=== PATIENT | male | born 2000 | race Caucasian/White ===

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

== ENCOUNTER 2021-04-17 00:21 | Emergency (ER) | payer BC, OTHER ==
[~2021-04-17] VITALS: Ht 182.9 cm; Wt 63.5 kg
[~2021-04-17 00:21] MED LIST changes: +IBU600 MG PO; +LIDO700A20 TOP
== END 2021-04-17 01:51 | disposition home or self-care (01) ==
LOC: ER 00:21
DX: F41.9 Anxiety disorder, unspecified (principal)
CPT/HCPCS: 90471; 90714; 99282-25; A9270

== ENCOUNTER 2021-11-25 14:21 | Emergency (ER) | payer BC, OTHER ==
[~2021-11-25] VITALS: Ht 182.9 cm; Wt 59.0 kg
[2021-11-25 15:43] LABS: BASOPHILS ABSOLUTE AUTO 0.04 K/mm3 (0.00-0.23); BASOPHILS PERCENT AUTO 0 % (0-2); EOSINOPHILS ABSOLUTE AUTO 0.11 K/mm3 (0.00-0.68); EOSINOPHILS PERCENT AUTO 1 % (0-6); Hematocrit 45.2 % (37.0-53.0); Hemoglobin 15.6 g/dL (13.5-17.5); IMMATURE GRAN ABSOLUTE AUTO 0.05 K/mm3 (0.00-0.10); IMMATURE GRAN PERCENT AUTO 0 % (0-1); LYMPHOCYTES ABSOLUTE AUTO 0.48 K/mm3 (0.84-5.20); LYMPHOCYTES PERCENT AUTO 4 % (21-46); MONOCYTES ABSOLUTE AUTO 0.69 K/mm3 (0.16-1.47); MONOCYTES PERCENT AUTO 6 % (4-13); Mean Corpuscular HGB 30.1 pg (26.0-34.0); Mean Corpuscular HGB Conc 34.5 g/dL (31.5-36.5); Mean Corpuscular Volume 87 fL (80-100); Mean Platelet Volume 11.5 fL (9.1-12.4); NEUTROPHILS PERCENT AUTO 89 % (41-73); Platelet Count 298 K/mm3 (150-400); RDW Coefficient Variation 12.9 % (11.7-14.2); RDW Standard Deviation 41.5 fL (35.1-46.3); Red Blood Cell Count 5.18 M/mm3 (4.30-5.90); White Blood Cell Count 12.37 K/mm3 (4.00-11.30)
[2021-11-25 15:55] LABS: Albumin, Blood 4.6 g/dL (3.4-5.0); Albumin/Globulin Ratio 1.4 (0.8-1.8); Bilirubin, Total 0.9 mg/dL (0.1-1.0); Bun/Creatinine Ratio 14.6 (12.0-20.0); Creatinine, Blood 0.96 mg/dL (0.60-1.20); Globulin, Blood 3.3 g/dL (2.2-4.0); Potassium, Blood 4.5 mmol/L (3.5-5.5); Total Protein, Blood 7.9 g/dL (6.4-8.2)
[2021-11-25 16:58] LABS: Source, Urine Clean Catch
[2021-11-25 17:01] LABS: Appearance, Urine Clear (Clear); Blood, Urine 1+ (Neg); Color, Urine Amber (P-Yellow); Glucose Qualitative, Urine Neg (Neg); Ketones, Urine 4+ (Neg); Leukocyte Esterase, Urine 1+ (Neg); Nitrite, Urine Neg (Neg); Protein, Urine 2+ (Neg); Urobilinogen, Urine 1+ (Normal)
[2021-11-25 17:08] LABS: Bilirubin, Urine 1+ (Neg)
[2021-11-25 17:09] LABS: White Blood Cells, Urine 0-2 /hpf (0-5)
[2021-11-25 17:10] LABS: Bacteria Few /hpf; Mucus Light (0-Heavy); Squamous Epithelial Cells Not Seen /hpf (Few)
[2021-11-25] MEDS ORDERED: ONDA4ODT MM (19:14)
== END 2021-11-25 19:29 | disposition home or self-care (01) ==
LOC: ER 14:21
PROVIDERS: Physician Assistant
DX: A08.4 Viral intestinal infection, unspecified (principal); F17.290 Nicotine dependence, other tobacco product, uncomplicated
CPT/HCPCS: 36415; 80053; 81001; 83690; 85025; 87086; 96374; 99283-25; A9270; J2405; J7030